=== PATIENT | female | born 1995 | race Caucasian/White ===

== ENCOUNTER 2017-02-05 18:22 | Emergency (ER) | payer OTHER ==
[~2017-02-05] VITALS: Ht 162.6 cm; Wt 87.3 kg
[2017-02-05 21:11] VITALS: BP 132/94
== END 2017-02-05 21:11 | disposition home or self-care (01) ==
LOC: ED 18:22
DX: N94.6 Dysmenorrhea, unspecified (principal); R10.30 Lower abdominal pain, unspecified

== ENCOUNTER 2017-09-26 20:19 | Emergency (ER) | payer OTHER ==
[~2017-09-26] VITALS: Ht 165.1 cm; Wt 93.0 kg
[2017-09-26 21:07] VITALS: BP 134/77; Ht 165.1 cm; Wt 93.0 kg
== END 2017-09-26 22:13 | disposition home or self-care (01) ==
LOC: ED 20:19
DX: T22.1 Burn of first degree of shoulder and upper limb, except wrist and hand (principal)